=== PATIENT | female | born 1995 | race Caucasian/White ===

== ENCOUNTER 2016-06-17 17:10 | Emergency (ER) | payer OTHER | END 2016-06-17 20:03 | disposition home or self-care (01) | LOC: D.ER 17:10 | DX: S16.1XXA Strain of muscle, fascia and tendon at neck level, initial encounter (principal); V43.52XA Car driver injured in collision with other type car in traffic accident, initial encounter; Y93.89 Activity, other specified; Y92.410 Unspecified street and highway as the place of occurrence of the external cause ==

== ENCOUNTER 2017-11-06 03:09 | Emergency (ER) | payer MEDICAID ==
[~2017-11-06] VITALS: Ht 167.6 cm; Wt 81.8 kg
[2017-11-06 03:11] VITALS: Ht 167.6 cm; Wt 81.8 kg
[2017-11-06] MEDS ORDERED: ZPAK PO (05:16)
[2017-11-06] MEDS ORDERED: PROAIR HFA8.5 GM INH (05:16)
[2017-11-06 05:33] VITALS: BP 120/80
== END 2017-11-06 05:34 | disposition home or self-care (01) ==
LOC: D.ER 03:09
DX: J18.9 Pneumonia, unspecified organism (principal); R06.02 Shortness of breath; F17.200 Nicotine dependence, unspecified, uncomplicated

== ENCOUNTER 2018-09-06 15:53 | Emergency (ER) | payer SELFPAY ==
[~2018-09-06] VITALS: Ht 167.6 cm; Wt 84.1 kg
[~2018-09-06 15:53] MED LIST: PROAIR HFA8.5 GM INH; ZPAK PO
[2018-09-06 16:05] VITALS: BP 135/86; Ht 167.6 cm; Wt 84.1 kg
== END 2018-09-06 16:35 | disposition home or self-care (01) ==
LOC: D.ER 15:53
DX: R04.0 Epistaxis (principal)